=== PATIENT | female | born 1950 | race Caucasian/White ===

== ENCOUNTER 2016-11-11 00:39 | Emergency (ER) | payer OTHER ==
[~2016-11-11] VITALS: Ht 154.9 cm; Wt 90.9 kg
[~2016-11-11 00:39] MED LIST: ESCI20TA PO; LACT1TAB10 PO; MULT-1018 PO; ONDAN8ODT PO; PRAV20TA2 PO
[2016-11-11 00:45] VITALS: BP 129/77; PULSE 87; RESP 18; O2SAT 96
--- NOTE | 2016-11-11 01:05 | ED.REPORT ---
HPI-General Illness Date of Service Nov 11, 2016 ED Provider: Ha Vivas MD A healthy 65 year old female presents to the ED with generalized weakness onset yesterday. Associated symptoms include subjective fever, productive cough, diarrhea, generalized myalgias, and pleuritic chest pain. The patient denies nausea, vomiting, dysuria, shortness of breath, or other symptoms. Nursing Notes Stated Complaint: FLU SYMPTOMS Chief Complaint: FLU/Cold Symptoms Nursing Notes Reviewed: Yes Allergies: Coded Allergies: Penicillins (Verified Allergy, Severe, HIVES, 11/11/16) Scheduled Escitalopram-Expunged Drug, Do Not Renew! (Lexapro-Expunged Drug, Do Not Renew! ) 20 Mg Tablet 20 MG PO DAILY LACTO ACID-Expunged Drug, Do Not Renew! (ACIDOPHILUS-Expunged Drug, Do Not Renew !) 1 Each Tablet 1 EACH PO BID MULTIVITAMIN-Expunged Drug, Do Not Renew! (MULTI VITAMIN -Expunged Drug, Do Not Renew!) 1 Each Tablet 1 EACH PO DAILY Ondansetron (Ondansetron) 8 Mg Tab.rapdis 8 MG PO Q8 DISSOLVE IN MOUTH OR UNDER TONGUE Pravastatin-Expunged Drug, Do Not Renew! (Pravastatin-Expunged Drug, Do Not Renew!) 20 Mg Tablet 10 MG PO HS General Time Seen by MD: 01:04 Chief Complaint Weakness Hx Obtained From: Patient Arrived By: Walk-in Sudden in Onset?: No Onset Occurred: Yesterday Symptom Duration: Since onset Location: : Chest (and generalized) Quality: Painful, Pleuritic Severity: Current: Moderate Severity: Maximum: Moderate Associated with: Reports: Cough, Fever (Subjective), Denies: Nausea, Vomiting Pertinent Negative: Relieved by nothing Recent Healthcare: No recent doctor visit Past Medical History Past Medical History None reported Past Surgical History Colonoscopy Uvula Right knee arthroscopic chondroplasty of patellar trochlea, medial femoral condyle Arthroscopic partial lateral meniscectomy Smoking History Unknown if Ever Smoker Social History Other Social History: Lives alone Ambulatory Status Independent Review of Systems + Productive cough Full Review of Systems Constitutional: Reports: Fever (Subjective), Weakness - generalized Respiratory: Reports: Pleuritic pain, Denies: Shortness of breath Cardiovascular: Reports: Chest pain GI: Reports: Diarrhea, Denies: Nausea, Vomiting Female: Denies: Dysuria Musculoskeletal: Reports: Myalgia (Generalized) Complete sys rev & neg: except as marked. Physical Exam Vital Signs Vital Signs Date Time Temp Pulse Resp B/P Pulse Ox O2 Delivery O2 Flow Rate FiO2 11/11/16 02:53 75 22 136/70 95 Room Air 11/11/16 00:45 37.0 87 18 129/77 96 Room Air Initial VS: Reviewed Head / Eyes: Atraumatic, Normocephalic Neck: Supple, Full range of motion Cardiovascular: Regular rate & rhythm, Heart sounds normal Skin: Warm, Dry, No cyanosis Neurologic: Alert, Oriented, Nonfocal Psychiatric: Mood/affect normal, Behavior normal, Normal thought content General/Constitutional: Awake, Alert, No acute distress ENT: Airway patent, Pharynx NL Mouth: Positive: Mucous membranes dry Respiratory / Chest: No respiratory distress Rales on the right Egophony on the right Abdomen: Soft, Non-tender Obese Interpretation & Diagnostics INFLUENZA NEGATIVE X-Ray Chest Interpretation Chest Xray Interpretation: No acute infiltrate No acute findings View: AP & lat Interpretation / Wet Read by: Wet read ED physician Re-Eval/Medical Decision Med Decision/Clinical Course 65-year-old female referred by advice line with cough and some fatigue. Flu is negative. Chest x-ray shows no lobar infiltrate. Oxygenation is 96%. Exam is otherwise benign. No indication for antibiotics at this point. Home with albuterol puffer and spacer. Afrin nasal spray for nighttime suppression of postnasal drip. Follow up with PCP in the office. Time of Eval: 02:14 Patient Status: Condition improved Re-Evaluation/Progress Note: Discussed with patient lab and x-ray results, diagnosis, and plan for discharge. Follow-up and return to the ER instructions given. Patient agrees with plan for care and all questions were addressed. Counseled Regarding: Diagnosis, Lab results, Need for follow-up, When/why to return to ED Discharge & Departure Shift Change Sign-Out Response to Therapy: Improved Primary Impression: Bronchitis Additional Impression: Reactive airway disease that is not asthma Disposition: Home Discharge Condition All VS Reviewed: Yes Condition: Improved Patient Instructions: Acute Bronchitis (ED), Reactive Airways Disease (ED) Additional Instructions: Use Afrin spray nightly for three nights. Use at night only, and for three nights only, and then stop. Use three or four sprays, sufficient to clear your nostrils completely. Wait a minute or so between sprays to allow the tissue to shrink and allow the medicine to penetrate better on the next round. Albuterol puffer 1-2 puffs every four hours as needed for cough. Stay well-hydrated. Run a vaporizer in her room is available. Follow-up with your doctor in the office. Referrals: Lorie Rogers MD (PCP) Scribe Attestation Portions of this note were transcribed by Anjelica Montague. I, Dr. Vivas, personally performed the history, physical exam, and medical decision-making; I reviewed and confirmed the accuracy of the information in the transcribed note. Signed by: Nelson Marquez, 11/11/2016, 02:30 copies to: Lorie Rogers MD, Christopher W MD Nov 11, 2016 01:05 ANJELICA MONTAGUE Nov 11, 2016 01:16
[2016-11-11] MEDS ORDERED: _Albuterol-HFA 60 Puff Inhaler INHALATION PRN (02:20)
[2016-11-11 02:53] VITALS: BP 136/70; PULSE 75; RESP 22; O2SAT 95
--- NOTE | 2016-11-11 09:00 | DRSVH ---
PROCEDURE: X-RAY CHEST, TWO VIEWS ([id number]) INDICATIONS: cough, rt sided rales TECHNIQUE: 2 views of the chest were acquired. COMPARISON: None. FINDINGS: Surgical changes and devices: None. Lungs and pleura: No pleural effusions or pneumothorax. Asymmetric right medial apical opacities pr esent otherwise lungs are clear.. Mediastinum: Mediastinal contours are normal. Heart size is normal. Bones and chest wall: No suspicious bony abnormalities. Soft tissues appear unremarkable. IMPRESSION: Asymmetric medial right apical airspace opacity. Underlying lung mass cannot be excluded and noncontrast chest CT scan is recommended for further assessment. Dictated by: Kale HA Interpreted: Jo-Ann Mejia MD on 11/11/2016 at 8:57 Approved by: Kale HA Interpreted: Jo-Ann Mejia MD on 11/11/2016 at 8:58
== END 2016-11-11 02:56 | disposition home or self-care (01) ==
LOC: SED 00:39
DX: J40 Bronchitis, not specified as acute or chronic (principal); R53.1 Weakness; R50.9 Fever, unspecified; R05 Cough; R19.7 Diarrhea, unspecified; M79.1 Myalgia; R07.81 Pleurodynia; Z88.0 Allergy status to penicillin